=== PATIENT | female | born 1975 | race Caucasian/White ===

== ENCOUNTER 2017-11-11 13:00 | Day surgery (SDC) | payer BC ==
[~2017-11-11 13:00] MED LIST: Buffered Lidocaine 0.9% SYRIN* 5 ML/SYR SYRINGE INTRADERM ONE; Sodium Citrate/Citric Acid* 15 ML UDC ONE; Sodium Citrate/Citric Acid* 15 ML UDC PO ONE
[2017-11-11] MEDS ORDERED: fentaNYL* 50 MCG/ML 2 ML VIAL (100 MCG VIAL) ONE (13:58)
[2017-11-11] MEDS ORDERED: Midazolam* 1 MG/ML 2 ML VIAL (2 MG) ONE ×2 (13:59→14:15)
[2017-11-11] MEDS ORDERED: Lidocaine 2% PF * 5 ML VIAL ONE (13:59)
[2017-11-11] MEDS ORDERED: Propofol* 10 MG/ML 20 ML BTL IV PUSH ONE ×2 (13:59→14:57)
[2017-11-11] MEDS ORDERED: Lidocaine 1% MPF wEPI 200,000* 30 ML SDV ONE (14:03)
[2017-11-11] MEDS ORDERED: Bupivacaine 0.25% SDV* 30 ML ONE (14:03)
[2017-11-11] MEDS ORDERED: Naloxone* 0.4 MG/ML 1 ML VIAL IV PRN (15:15)
[2017-11-11 15:52] VITALS: BP 109/56
== END 2017-11-11 15:46 | disposition home or self-care (01) ==
LOC: OREAST 13:00
PROVIDERS: ATTEND Plastic Surgery
DX: R22.2 Localized swelling, mass and lump, trunk (principal); M54.2 Cervicalgia; F32.9 Major depressive disorder, single episode, unspecified
CPT/HCPCS: 81025; 88305; A9270-GY; J2001; J2250; J2704; J3010